=== PATIENT | male | born 1960 | race Caucasian/White ===

== ENCOUNTER 2021-05-04 17:14 | Emergency (ER) | payer OTHER, SELFPAY ==
[2021-05-04 17:18] VITALS: BP 130/82; PULSE 63; RESP 18; TEMP 37; O2SAT 99
[2021-05-04] MEDS: TETANUS,DIPHTHERIA,AC PERTUSSIS ADULT (0.5 ML) BOOSTRIX IM (18:21)
--- NOTE | 2021-05-04 18:57 | ED.WOUNDLAC ---
HPI - Wound/Laceration General Chief Complaint: Wound/Laceration Stated Complaint: left hand laceration Time Seen by Provider: 05/04/21 17:29 Source: patient Mode of arrival: ambulatory Limitations: no limitations History of Present Illness HPI narrative: This is a 60-year-old male that presents to the emergency department for laceration to the left hand sustained just prior to arrival. Reports he accidentally cut his hand with a utility knife. He is not up-to-date on tetanus. Reports bleeding and pain to the area. Denies decreased range of motion or numbness. Related Data Allergies Allergy/AdvReac Type Severity Reaction Status Date / Time No Known Allergies Allergy Unverified 02/15/15 10:59 Review of Systems Review of Systems: CONSTITUTIONAL: Denies fever SKIN: Reports laceration All systems reviewed & are unremarkable except as noted in HPI and below PMFSH Past Medical History Medical History (Updated 05/04/21 @ 20:01 by Radha Salazar PA-C) No active medical problems Social History Social History (Updated 05/04/21 @ 18:59 by Radha Salazar PA-C) Substance use: never Exam Narrative: GENERAL: Well-appearing, well-nourished, and in no acute distress. HEAD: Normocephalic, atraumatic. EYES: EOMI. EXTREMITIES: Normal range of motion. No edema. 2.5 cm linear laceration into subcutaneous tissue at the base of the left thumb. Normal radial pulses SKIN: Warm, dry, no rash. NEURO: No focal deficits. Alert and oriented x3. PSYCH: Normal mood and affect Course Vital Signs Vital signs: Vital Signs Temperature 98.6 F 05/04/21 17:18 Pulse Rate 63 05/04/21 17:18 Respiratory Rate 18 05/04/21 17:18 Blood Pressure 130/82 05/04/21 17:18 Pulse Oximetry 99 05/04/21 17:18 Temperature 98.6 F 05/04/21 17:18 Pulse Rate 63 05/04/21 17:18 Respiratory Rate 18 05/04/21 17:18 Blood Pressure 130/82 05/04/21 17:18 Pulse Oximetry 99 05/04/21 17:18 Procedures Laceration Laceration 1: Date: 05/04/21 Time: 19:59 Site: hand Side (If applicable): left Size (cm): 2.5 Description: linear Depth: simple, single layer Local Anesthetic: lidocaine 1% and with epi Amount of anesthesia used (mL): 2 Pre-repair: irrigated ====== Skin Level ====== Skin layer closed with: nylon Size (cm): 4-0 Number of sutures: 3 Technique: simple, interrupted ====== Subcutaneous Layer ====== ====== Muscle Layer ====== ====== Tendon Layer ====== MDM - Wound/Laceration MDM Narrative Medical decision making narrative: Patient presents the emergency department for laceration to the left hand sustained just prior to arrival. Wound was irrigated and closed with sutures. Patient was updated on tetanus. He was educated on wound care. He is to follow-up with primary care doctor. He was given warnings to return to the ER Critical Care Time Critical Care Time Critical Care Time: No Discharge Plan Discharge Clinical Impression: Laceration Patient Disposition: Home, Self-Care Condition: Stable Instructions: Care For Your Stitches (ED), Laceration (ED) Additional Instructions: Return to the emergency department if you experience fever, redness or swelling of your wound, abnormal drainage from your wound, or any other symptoms that are concerning to you. Apply antibiotic ointment daily. Do not soak the wound. Clean with mild soap and water daily Follow-up with your primary care doctor for suture removal in 10-14 days. Follow-up/Referrals: Kate,MD [facility] [Primary Care Provider] - 2 Weeks
[2021-05-04 20:16] VITALS: BP 124/79; PULSE 50; RESP 16; O2SAT 98
== END 2021-05-04 20:17 | disposition home or self-care (01) ==
PROVIDERS: Emergency Provider Emergency Medicine; PCP Internal Medicine
DX: S61.412A Laceration without foreign body of left hand, initial encounter (principal); Z23 Encounter for immunization; W26.0XXA Contact with knife, initial encounter
CPT/HCPCS: 12001; 90471; 90715; 99282